=== PATIENT | male | born 1980 | race Caucasian/White ===

== ENCOUNTER 2018-11-16 17:41 | Outpatient (REF) | payer MEDICAID, SELFPAY ==
[2018-11-16 20:32] LABS: Anion Gap 12.1 mmol/L (3-11); BUN 17 mg/dL (7-18); CO2 24.9 mmol/L (21.0-32.0); Calcium 9.1 mg/dL (8.5-10.1); Chloride 104 mmol/L (98-107); Glucose 90 mg/dL (70-100); Sodium 141 mmol/L (136-145)
== END 2018-11-16 18:01 ==
LOC: NCHCN 17:41
PROVIDERS: PCP Internal Medicine; Visit Provider Internal Medicine
DX: I10 Essential (primary) hypertension (principal); E66.9 Obesity, unspecified
CPT/HCPCS: 80048

== ENCOUNTER 2019-10-16 17:18 | Outpatient (REF) | payer MEDICAID, SELFPAY ==
[2019-10-16 19:47] LABS: HCT 42.5 % (40.0-50.0); HGB 14.4 g/dL (13.5-17.5); MCH 28.7 pg (27.0-33.0); MCHC 33.9 % (32.0-36.0); MCV 84.7 fL (80-95); MPV 11.6 fL (8.0-11.0); Platelet Count 292 10^3/uL (130-400); RBC 5.02 10^6/uL (4.36-5.78); RDW 12.8 % (11.8-14.1); WBC 9.27 10^3/uL (4.4-10.8)
[2019-10-16 20:30] LABS: Anion Gap 11.4 mmol/L (3-11); BUN 18 mg/dL (7-18); CO2 24.6 mmol/L (21.0-32.0); CREATININE 1.05 mg/dL (0.70-1.30); Calcium 9.6 mg/dL (8.5-10.1); Chloride 102 mmol/L (98-107); Glucose 100 mg/dL (74-106); Potassium 4.2 mmol/L (3.5-5.1); Sodium 138 mmol/L (136-145)
[2019-10-16 20:37] LABS: Hemoglobin A1C 5.8 % (<5.7)
== END 2019-10-16 17:38 ==
LOC: NCHCN 17:18
PROVIDERS: PCP Internal Medicine; Visit Provider Internal Medicine
DX: I10 Essential (primary) hypertension (principal); F41.0 Panic disorder [episodic paroxysmal anxiety]; G47.33 Obstructive sleep apnea (adult) (pediatric); E66.9 Obesity, unspecified
CPT/HCPCS: 80048; 85027; 83036; 84443

== ENCOUNTER 2020-03-15 19:03 | Outpatient (REF) | payer MEDICAID, SELFPAY ==
[2020-03-17 20:20] LABS: COVID-19 RT-PCR UVMMC Result Positive (Negative)
== END 2020-03-15 19:23 ==
LOC: NCHCN 19:03
PROVIDERS: PCP Internal Medicine; Visit Provider Physician Assistant
DX: R43.8 Other disturbances of smell and taste (principal); R43.0 Anosmia; R05 Cough
CPT/HCPCS: U0003

== ENCOUNTER 2020-10-10 18:00 | Outpatient (REF) | payer MEDICAID, SELFPAY ==
[2020-10-10 19:36] LABS: Hemoglobin A1C 5.6 % (<5.7)
[2020-10-10 19:38] LABS: ALT 21 U/L (16-63); Anion Gap 11.5 mmol/L (3-11); BUN 20 mg/dL (7-18); CO2 24.5 mmol/L (21.0-32.0); CREATININE 1.3 mg/dL (0.70-1.30); Chloride 105 mmol/L (98-107); Glucose 104 mg/dL (74-106); LDL CHOLESTEROL 118 mg/dL (<100); Potassium 4.2 mmol/L (3.5-5.1); Sodium 141 mmol/L (136-145)
== END 2020-10-10 18:01 | disposition home or self-care (01) ==
LOC: NCHCN 18:00
PROVIDERS: PCP Internal Medicine; Visit Provider Internal Medicine
DX: I10 Essential (primary) hypertension (principal); R73.03 Prediabetes
CPT/HCPCS: 80048; 83721; 83036; 84460

== ENCOUNTER 2021-09-10 15:19 | Outpatient (REF) | payer MEDICAID, SELFPAY ==
[2021-09-20 01:27] LABS: 2-OH-Ethyl-Flurazepam Negative ng/mL (Cutoff: 10); 7-NH-Clonazepam 860 ng/mL (Cutoff: 10); 7-NH-Flunitrazepam Negative ng/mL (Cutoff: 10); Alpha OH-Alprazolam Negative ng/mL (Cutoff: 10); Alpha-OH Midazolam Negative ng/mL (Cutoff: 10); Alpha-OH-Triazolam Negative ng/mL (Cutoff: 10); Alprazolam Negative ng/mL (Cutoff: 10); Benzodiazepines Interpretation Positive.; Chlordiazepoxide Negative ng/mL (Cutoff: 10); Clobazam Negative ng/mL (Cutoff: 10); Clonazepam 20 ng/mL (Cutoff: 10); Diazepam Negative ng/mL (Cutoff: 10); Flurazepam Negative ng/mL (Cutoff: 10); Lorazepam Negative ng/mL (Cutoff: 10); Midazolam Negative ng/mL (Cutoff: 10); N-Desmethylclobazam Negative ng/mL (Cutoff: 10); Prazepam Negative ng/mL (Cutoff: 10); Temazepam Negative ng/mL (Cutoff: 10); Triazolam Negative ng/mL (Cutoff: 10); Zolpidem Carboxylic acid Negative ng/mL (Cutoff: 10)
== END 2021-09-10 15:20 | disposition home or self-care (01) ==
LOC: NCHCN 15:19
PROVIDERS: PCP Internal Medicine; Visit Provider Internal Medicine
DX: F41.1 Generalized anxiety disorder (principal); Z51.81 Encounter for therapeutic drug level monitoring
CPT/HCPCS: 80346

== ENCOUNTER 2021-10-01 02:16 | Outpatient (CLI) | payer MEDICAID, SELFPAY ==
[2021-10-01 07:52] LABS: Source Nasal/Nares
[2021-10-01 10:34] LABS: COVID-19 PCR Negative (Negative)
== END 2021-10-01 02:17 | disposition home or self-care (01) ==
LOC: LBO 02:17
PROVIDERS: PCP Internal Medicine; Visit Provider Surgery
DX: Z20.822 Contact with and (suspected) exposure to COVID-19 (principal); Z01.818 Encounter for other preprocedural examination
CPT/HCPCS: 87635

== ENCOUNTER 2021-10-03 06:17 | Day surgery (SDC) | payer MEDICAID, SELFPAY ==
[2021-10-03 06:17] VITALS: BP 152/104; PULSE 72; RESP 18; TEMP 37.1; O2SAT 98
[2021-10-03] MEDS: Lactated Ringers 1,000 ML 80 ML IV (07:00)
--- NOTE | 2021-10-03 07:08 | W.ANESPRE ---
General Info Date of Service Date Performed: 10/03/21 Height: 5 ft 9 in Weight: 117.8 kg Body Mass Index (BMI): 38.3 Surgical Procedure: Operation Date: 10/03/21 07:35 Proposed Procedure Side Surgeon p Gastroscopy Donell Kingsley MD Meds Allergies and Home Medications Allergies Allergy/AdvReac Type Severity Reaction Status Date / Time cyclobenzaprine Allergy Severe Verified 10/03/21 06:40 [From Flexeril] Home Medication Medication Instructions Recorded amlodipine 10 mg tablet 10 mg PO DAILY 09/03/21 clonazepam 1 mg tablet 1 mg PO BID 09/03/21 ibuprofen 600 mg tablet 600 mg PO Q8H PRN 09/03/21 lansoprazole 30 mg capsule,delayed 30 mg PO DAILY 09/03/21 release magnesium oxide 250 mg PO BID 09/03/21 Current Visit Medications: Current Medications Generic Name Dose Route Start Last Admin Trade Name Freq PRN Reason Stop Dose Admin Ringer's Solution 1,000 mls @ 80 mls/hr 10/03/21 06:00 10/03/21 07:00 IV 11/01/21 23:59 80 mls/hr INFUSION RON Administration IV Miscellaneous Supplies 1 each 10/03/21 06:00 Iv Access IV 11/01/21 23:59 DIRECTED RON Sodium Chloride 0 ml 10/03/21 06:00 Normal Saline Flush 10 Ml Syr IV 11/01/21 23:59 PRN PRN Sodium Chloride 0 ml 10/03/21 06:00 Normal Saline 10 Ml Vial IJ 11/01/21 23:59 DIRECTED PRN Sterile Water 0 ml 10/03/21 06:00 Water,Injection,Sterile 10 Ml Vial IJ 11/01/21 23:59 DIRECTED PRN PFSH Active Problems Active Problems: Problem Status Onset Code Pharyngitis J02.9 GERD (gastroesophageal reflux disease) K21.9 Medical History Medical History Anxiety Arthropathy of elbow Chest pain, atypical Per pt. states it is anxiety related, not cardiac in nature. Dysphagia EUGENIA (generalized anxiety disorder) HTN (hypertension) Obesity CESAR (obstructive sleep apnea) Pain disorder Pain in left finger(s) Prediabetes Ulnar nerve entrapment at right elbow Surgical History Surgical History H/O elbow surgery Right Tobacco Smoking/Tobacco Use Status: Former Tobacco Use Alcohol Alcohol Intake: current Alcohol intake frequency: 0-2 drinks per day Alcohol type: beer Substance Use Substance use: Never Substance use type: does not use Vital Signs and Lab Results Vital Signs Most Recent Vital Signs in EMR: Most Recent Vital Signs Temp Pulse Resp BP Pulse Ox 37.1 C 72 18 152/104 H 98 10/03/21 06:17 10/03/21 06:17 10/03/21 06:17 10/03/21 06:17 10/03/21 06:17 Lab Results Blood Type / Crossmatch: No Data to Display Complete Blood Count: No Data to Display Complete Metabolic Panel: No Data to Display Liver Function Panel: No Data to Display Coagulation Panel: No Data to Display Cardiac Panel: No Data to Display Arterial Blood Gas: No Data to Display Venous Blood Gas: No Data to Display Pancreas Panel: No Data to Display Thyroid Panel: No Data to Display Infectious Disease: Coronavirus (COVID-19)(PCR) Negative (Negative) 10/01/21 07:45 Coronavirus 2019 Source Nasal/Nares 10/01/21 07:45 Blood Cultures: No Data to Display Toxicology Panel: No Data to Display Anesthesia Assessment and Plan Anesthesia History Personal History: No History of Anesthesia Complications Family History: No Family History of Anesthesia Complications Exercise Tolerance Exercise Tolerance: Metabolic Equivalents>4 Pertinent Negatives Pertinent Negatives: No Major Cardiovascular Symptoms or Complaints and No Major Pulmonary Symptoms or Complaints Cardiac & Pulmonary Exam Cardiac Exam: Normal S1/S2 Heart Sounds Pulmonary Exam: Clear Bilateral Breath Sounds Implantable Cardiac Device Does patient have a Pacemaker or an ICD?: No Airway Exam Known Difficult Airway: No Mallampati Class: 1 Mouth Opening: Normal (> 3cm) Thyromental Distance: Greater than 3 cm Facial Hair: Full Cisneros Neck Range of Motion: Full ROM Neck Circumference: Normal Teeth Condition: Normal Dentition ASA Classification ASA Score: ASA 2 Emergency Case?: No NPO Status NPO Status: NPO Clears >2 hours, Solids >8 hours Anesthesia Plan Resuscitation Status: Full Code Anesthesia Technique: General Anesthesia Airway Planned: Natural Airway Monitors Used: Standard Monitors
[2021-10-03 07:10] VITALS: BMI 38.3
--- NOTE | 2021-10-03 07:13 | W.PM.DSUDISC ---
Discharge Plan Disposition Patient Disposition: HOME Condition: Good Discharge Details Reason For Visit: EGD Attending Provider: Donell Kingsley Primary Care Provider: Miguel Falk Home Meds and New Rx's Prescriptions: New lansoprazole 30 mg tablet,disintegrat, delay rel 30 mg PO BID Qty: 60 0RF Rx Instructions: take one pill in the morning before breakfast and one in the evening before dinner for 1 month Continued clonazepam 1 mg tablet 1 mg PO BID Rx Instructions: 1 tab AM, 1 and 1/2 tab at QHS PRN ibuprofen 600 mg tablet 600 mg PO Q8H PRN magnesium oxide 250 mg magnesium tablet 250 mg PO BID amlodipine 10 mg tablet 10 mg PO DAILY Discontinued lansoprazole 30 mg capsule,delayed release(DR/EC) 30 mg PO DAILY Discharge Instructions Instructions: Upper Endoscopy (DC) Additional Instructions: 1. If tolerated, consume a soft, low fiber diet for 1-2 days. [address] Do not drive, drink alcohol, operate machinery, make critical decisions, or do activities that require coordination or balance for 24 hours. 3. You may experience a sore throat for 24 to 48 hours. You may use throat lozenges or gargle with warm salt water to relieve the discomfort. 4. Because air was put into your stomach during the procedure, you may experience some belching. 5. Go directly to the emergency room if you notice any of the following: Develop chills (warm to touch), or if you have a thermometer and your temperature is above 101 Difficulty breathing or difficultly swallowing Persistent vomiting Severe abdominal pain, other than gas cramps Severe chest pain Black, tarry stools Any bleeding ? exceeding one tablespoon 6. Call your physician if the site where your intravenous was started becomes red, swollen, painful, and warm to touch. 7. Your physician has reviewed your pre-procedure medications. Please continue to take those medications as previously ordered. You will be given specific information/education regarding any changes to your medications before leaving. 8. Increase lansoprazole to 2 times per day for one month 9. My office will call you with biopsy results 10. Schedule an appointment to see me in 1 year to reassess esophagitis. Referrals: Miguel Falk [Primary Care Provider] - Activity:: Activity as Tolerated Diet:: As Tolerated Discharge Orders Discharge Orders: Discharge Order (Routine); Ordered 08/19/22 Ordered By: Donell Kingsley DS: Diagnosis Discharge Diagnosis (1) Gastric ulcer: Status: Acute
--- NOTE | 2021-10-03 07:24 | W.PM.ENDDOP ---
Date of service: 10/03/21 Time of Service: 08:46 Endoscopy Report DATE OF PROCEDURE: 10/03/21 PRE-OP DIAGNOSIS: GERD POST-OP DIAGNOSIS: other (gastric ulcers) PROCEDURE: EGD SURGEON: Donell Kingsley ANESTHESIA TYPE: General:No Airway ESTIMATED BLOOD LOSS: 10 COMPLICATIONS: None DISPOSITION: same day INDICATIONS: Miguel is a 41-year-old male with long a longstanding history of gastroesophageal reflux disease managed with proton pump inhibition. Recently, he has had an exacerbation of his symptoms, with some mild dysphagia and nausea. PROCEDURE START TIME: 07:39 PROCEDURE END TIME: 07:48 FINDINGS: Prepyloric gastric ulcers PROCEDURE DESCRIPTION: After the initiation of monitored anesthetic care, and with the assistance of a bite block, I advanced a standard gastroscope through the mouth past the hypopharynx and into the esophagus.? Under the direct vision of the scope, I advanced down the esophagus into the stomach.? Once I entered the stomach, I performed a brief inspection, followed by retroflexion towards the gastric cardia.? This appeared normal.? After that, I gently advanced the scope around the incisura angularis and examined the pylorus.? There were 2 small areas of linear ulceration immediately in front of the pylorus. Using cold forceps, I performed 2 biopsies here. There was minimal bleeding.? Next, I advanced the scope through the pylorus into the duodenum.? The mucosa was pink and healthy appearing.? There were no abnormalities.? I was able to visualize bile draining into the duodenum through the ampulla Vater. ?Next, I began retracting the endoscope.? Again, I returned to the stomach which was carefully examined.? I then gently desufflated some of the stomach, and withdrew the endoscope into the distal esophagus. The Z-line was at 40 cm. There was some mild erythematous changes here. ?Finally, I withdrew the scope along the length of the esophagus taking great care to examine the entirety of the mucosa.? I did not appreciate any abnormalities. I would like to see him again in the next year for another endoscopy to rule out evolution of Sanchez's esophagitis.
--- NOTE | 2021-10-03 07:44 | STOM_PTH ---
PATIENT: Miguel Snyder LOC: [facility] U#:[id number] AGE/SX: 41/M ROOM: RE10/03/[address]: Donell Kingsley MD : 1980 BED: DIS: 10/03/2021 SPEC #: [id number] RECD: 10/03/21 12:29 STATUS: JESSICA RE #: [id number] NEHA: 10/03/21 07:[address]: Donell Kingsley DEPT: Surgical Specimen RECD BY: Jessica Moctezuma ENTERED: 10/03/21 12:30 SP TYPE: STOMACH OTHR DR: Miguel Falk Tissues: 1 - STOMACH BIOPSY 2 - STOMACH BIOPSY Procedures: GROSS AND MICRO LEVEL 4 Comments: [id number]
[2021-10-03 07:58] VITALS: BP 144/90; PULSE 76; RESP 14; TEMP 36.5; O2SAT 96
[2021-10-03 08:30] VITALS: BP 151/95; PULSE 63; RESP 18; TEMP 36.5; O2SAT 97
--- NOTE | 2021-10-03 08:40 | W.ANESPOSTOP ---
Postoperative Evaluation Date, Time and Location Date Performed: 10/03/21 Time Performed: 08:40 Patient Location: Day Surgery Unit Vital Signs Most Recent Imported Vital Signs: Most Recent Vital Signs Temp Pulse Resp BP Pulse Ox 36.5 C 76 14 144/90 H 96 10/03/21 07:58 10/03/21 07:58 10/03/21 07:58 10/03/21 07:58 10/03/21 07:58 Pain Score Most Recent Pain Score: Most Recent Pain Score Pain Level 0 10/03/21 07:58 Assessment Mental Status: Awake (Alert & Oriented to Patient Baseline) Airway and Respiratory Function: Patent airway with normal (patient baseline) respiratory exam Cardiovascular Function: Hemodynamically Stable Hydration Status: Adequately Hydrated Nausea & Vomiting: No Nausea or Vomiting Pain: Pt. Denies Any Pain Peripheral Nerve Block: Patient did not receive a nerve block
== END 2021-10-03 08:54 | disposition home or self-care (01) ==
PROVIDERS: PCP Internal Medicine; Visit Provider Surgery
PROC: 0DJ68ZZ Inspection of Stomach, Via Natural or Artificial Opening Endoscopic (ICD-10-PCS; CPT 43235; principal; 2021-10-03 07:30)
DX: K25.9 Gastric ulcer, unspecified as acute or chronic, without hemorrhage or perforation (principal); K21.9 Gastro-esophageal reflux disease without esophagitis; R73.03 Prediabetes; I10 Essential (primary) hypertension; G47.33 Obstructive sleep apnea (adult) (pediatric); K31.89 Other diseases of stomach and duodenum
CPT/HCPCS: 43239; 88305; J2250

== ENCOUNTER 2021-12-05 16:03 | Outpatient (REF) | payer MEDICAID, SELFPAY ==
[2021-12-05 19:33] LABS: ALT 32 U/L (16-63); Anion Gap 11.5 mmol/L (3-11); BUN 13 mg/dL (7-18); CO2 27.5 mmol/L (21.0-32.0); Calcium 9.5 mg/dL (8.5-10.1); Chloride 100 mmol/L (98-107); Creatine Kinase 419 U/L (39-308); Estimated GFR 97.58 (mL/min/1.73m2); Glucose 136 mg/dL (74-106); Sodium 139 mmol/L (136-145)
[2021-12-05 19:58] LABS: Potassium 2.8 mmol/L (3.5-5.1)
[2021-12-05 20:11] LABS: Calculated LDL 130 mg/dL (<100); Cholesterol 199 mg/dL (<200); HDL Cholesterol 43 mg/dL (40-60); Triglyceride 132 mg/dL (<150)
== END 2021-12-05 16:04 | disposition home or self-care (01) ==
LOC: NCHCN 16:03
PROVIDERS: PCP Internal Medicine; Visit Provider Internal Medicine
DX: I10 Essential (primary) hypertension (principal); R73.03 Prediabetes; K12.2 Cellulitis and abscess of mouth
CPT/HCPCS: 80048; 80061; 82550; 84460

== ENCOUNTER 2021-12-10 21:26 | Outpatient (REF) | payer MEDICAID, SELFPAY ==
[2021-12-10 20:56] LABS: Potassium 3.5 mmol/L (3.5-5.1)
== END 2021-12-10 21:27 | disposition home or self-care (01) ==
LOC: NCHCN 21:26
PROVIDERS: PCP Internal Medicine; Visit Provider Internal Medicine
DX: E87.6 Hypokalemia (principal)
CPT/HCPCS: 84132

== ENCOUNTER 2022-02-04 10:41 | Outpatient (REF) | payer MEDICAID, SELFPAY ==
[2022-02-04 20:05] LABS: Anion Gap 8.5 mmol/L (3-11); BUN 19 mg/dL (7-18); CO2 27.5 mmol/L (21.0-32.0); CREATININE 1.1 mg/dL (0.70-1.30); Calcium 9.6 mg/dL (8.5-10.1); Chloride 102 mmol/L (98-107); Estimated GFR 87.03 (mL/min/1.73m2); Glucose 117 mg/dL (74-106); Potassium 3.8 mmol/L (3.5-5.1); Sodium 138 mmol/L (136-145)
== END 2022-02-04 10:42 | disposition home or self-care (01) ==
LOC: NCHCN 10:41
PROVIDERS: PCP Internal Medicine; Visit Provider Nurse Practitioner Family
DX: R42 Dizziness and giddiness (principal); I10 Essential (primary) hypertension; R73.03 Prediabetes
CPT/HCPCS: 80048

== ENCOUNTER 2022-07-27 17:47 | Outpatient (REF) | payer MEDICAID, SELFPAY ==
[2022-07-27 20:23] LABS: BUN 18 mg/dL (7-18); Calcium 9.3 mg/dL (8.5-10.1); Chloride 101 mmol/L (98-107); Estimated GFR 97.58 (mL/min/1.73m2); Glucose 114 mg/dL (74-106); LDH 196 U/L (85-227); Magnesium 1.9 mg/dL (1.8-2.4); Potassium 3.4 mmol/L (3.5-5.1); Sodium 137 mmol/L (136-145)
[2022-07-29 09:47] LABS: AFP Tumor Marker 5.5 ng/mL (<8.1)
[2022-07-29 18:03] LABS: Beta-HCG, Quant, Tumor Marker <0.6 IU/L (<1.4)
== END 2022-07-27 17:48 | disposition home or self-care (01) ==
LOC: NCHCN 17:47
PROVIDERS: PCP Internal Medicine; Visit Provider Internal Medicine
DX: I10 Essential (primary) hypertension (principal); N50.9 Disorder of male genital organs, unspecified
CPT/HCPCS: 80048; 82105; 83615; 83735; 84702; 86376

== ENCOUNTER 2023-01-15 18:09 | Outpatient (REF) | payer MEDICAID, SELFPAY ==
[2023-01-15 19:02] LABS: ALT 33 U/L (16-63); AST 20 U/L (15-37); Albumin 4.6 g/dL (3.4-5.0); Alkaline Phosphatase 74 U/L (46-116); Anion Gap 11.1 mmol/L (3-11); BUN 18 mg/dL (7-18); Bilirubin, Total 0.6 mg/dL (0.2-1.0); CO2 26.9 mmol/L (21.0-32.0); CREATININE 1.1 mg/dL (0.70-1.30); Calcium 10.2 mg/dL (8.5-10.1); Chloride 99 mmol/L (98-107); Estimated GFR 86.49 (mL/min/1.73m2); Glucose 102 mg/dL (74-106); Hemoglobin A1C 5.7 % (<5.7); Potassium 3.8 mmol/L (3.5-5.1); Sodium 137 mmol/L (136-145); Total Protein 8.7 g/dL (6.4-8.2)
== END 2023-01-15 18:10 | disposition home or self-care (01) ==
LOC: NCHCN 18:09
PROVIDERS: PCP Internal Medicine; Visit Provider Physician Assistant
DX: R73.03 Prediabetes (principal); I10 Essential (primary) hypertension
CPT/HCPCS: 80053; 83036

== ENCOUNTER 2023-07-09 17:41 | Outpatient (REF) | payer MEDICAID, SELFPAY ==
[2023-07-09 18:43] LABS: HCT 45.2 % (40.0-50.0); HGB 15.5 g/dL (13.5-17.5); MCH 28.4 pg (27.0-33.0); MCHC 34.3 % (32.0-36.0); MCV 83 fL (80-95); MPV 10.6 fL (8.0-11.0); Platelet Count 327 10^3/uL (130-400); RBC 5.46 10^6/uL (4.36-5.78); RDW 12.5 % (11.8-14.1); RDW-SD 37.6 fL; WBC 9.54 10^3/uL (4.4-10.8)
[2023-07-09 18:55] LABS: ALT 50 U/L (16-63); AST 26 U/L (15-37); Albumin 4.6 g/dL (3.4-5.0); Alkaline Phosphatase 70 U/L (46-116); Anion Gap 10.3 mmol/L (3-11); BUN 17 mg/dL (7-18); CO2 28.7 mmol/L (21.0-32.0); CREATININE 1.1 mg/dL (0.70-1.30); Calcium 9.4 mg/dL (8.5-10.1); Chloride 99 mmol/L (98-107); Estimated GFR 86.49 (mL/min/1.73m2); Glucose 105 mg/dL (74-106); Lipase 47 U/L (16-77); Potassium 3.1 mmol/L (3.5-5.1); Sodium 138 mmol/L (136-145); Total Protein 8.4 g/dL (6.4-8.2)
== END 2023-07-09 17:42 | disposition home or self-care (01) ==
LOC: NCHCN 17:41
PROVIDERS: PCP Internal Medicine; Visit Provider Internal Medicine
DX: R10.9 Unspecified abdominal pain (principal)
CPT/HCPCS: 80053; 83690; 85027

== ENCOUNTER 2023-08-11 11:20 | Outpatient (REF) | payer MEDICAID, SELFPAY ==
[2023-08-11 20:57] LABS: Anion Gap 8.4 mmol/L (3-11); BUN 18 mg/dL (7-18); CO2 29.6 mmol/L (21.0-32.0); CREATININE 1.1 mg/dL (0.70-1.30); Calcium 9.4 mg/dL (8.5-10.1); Chloride 102 mmol/L (98-107); Estimated GFR 86.49 (mL/min/1.73m2); Glucose 115 mg/dL (74-106); Potassium 3.6 mmol/L (3.5-5.1); Sodium 140 mmol/L (136-145)
== END 2023-08-11 11:21 | disposition home or self-care (01) ==
LOC: NCHCN 11:20
PROVIDERS: PCP Internal Medicine; Visit Provider Internal Medicine
DX: I10 Essential (primary) hypertension (principal)
CPT/HCPCS: 80048

== ENCOUNTER 2024-03-06 20:32 | Outpatient (REF) | payer SELFPAY ==
[2024-03-06 19:21] LABS: Hemoglobin A1C 5.7 % (<5.7)
[2024-03-06 19:24] LABS: ALT 45 U/L (16-63); AST 26 U/L (15-37); Albumin 4.6 g/dL (3.4-5.0); Alkaline Phosphatase 66 U/L (46-116); Anion Gap 4.7 mmol/L (3-11); BUN 13 mg/dL (7-18); Bilirubin, Total 0.88 mg/dL (0.2-1.0); CO2 32.3 mmol/L (21.0-32.0); Calcium 9.7 mg/dL (8.5-10.1); Chloride 103 mmol/L (98-107); Estimated GFR 96.37 (mL/min/1.73m2); Glucose 97 mg/dL (74-106); Potassium 3.8 mmol/L (3.5-5.1); Sodium 140 mmol/L (136-145); Total Protein 8.1 g/dL (6.4-8.2)
[2024-03-06 19:37] LABS: D-Dimer 222 ng/mlFEU (<500)
== END 2024-03-06 20:33 | disposition home or self-care (01) ==
LOC: NCHCN 20:32
PROVIDERS: PCP Internal Medicine; Visit Provider Internal Medicine
DX: I10 Essential (primary) hypertension (principal)
CPT/HCPCS: 80048; 80053; 83036; 85379